=== PATIENT | male | born 2000 | race Caucasian/White ===

== ENCOUNTER 2024-09-24 00:21 | Emergency (ER) | payer SELFPAY ==
[~2024-09-24] VITALS: Ht 180.3 cm; Wt 82.0 kg
[2024-09-24 00:25] VITALS: O2SAT 98
[2024-09-24 03:11] VITALS: BP 129/81; PULSE 75; RESP 18; TEMP 37.4; O2SAT 98
== END 2024-09-24 03:13 | disposition home or self-care (01) ==
LOC: ER 00:21
DX: T51.0X1A Toxic effect of ethanol, accidental (unintentional), initial encounter (principal); F10.129 Alcohol abuse with intoxication, unspecified; F19.90 Other psychoactive substance use, unspecified, uncomplicated; X58.XXXA Exposure to other specified factors, initial encounter; Y93.89 Activity, other specified; Y92.89 Other specified places as the place of occurrence of the external cause; Y99.8 Other external cause status
CPT/HCPCS: 99283